=== PATIENT | male | born 1975 | race Caucasian/White ===

== ENCOUNTER 2021-01-30 16:17 | Emergency (ER) | payer MEDICAID ==
[~2021-01-30] VITALS: Ht 180.3 cm; Wt 79.0 kg
--- NOTE | 2021-01-30 16:41 | NUR ---
PT STATES WAS FEELING DIFERENT AND UNSTEADY AND HAVING TROUBLE CONCENTRATING. 3 DAYS AGO PT WAS FEELING UNEASY AND FELT LIKE HE WAS GOING TO BLACK OUT AND FAINT. PT WOKE UP THIS MORNING AND FELT UNSTEADY AGAIN WITH BLURRED VISION. HAS HAD NO APPETITE AND FELT EXHAUSTED. HEADACHES HAVE BEEN GOING ON FOR A WHILE.
[2021-01-30 17:49] LABS: ALANINE AMINOTRANSFERASE 15 U/L (12-78); ALBUMIN 4.3 g/dL (3.4-5.0); ANION GAP 5 mmol/L (5-15); CALCIUM 9.3 mg/dL (8.5-10.1); CHLORIDE 99 mmol/L (98-107); CREATININE 0.99 mg/dL (0.7-1.3)
[2021-01-30 17:53] LABS: BASOPHILS % (AUTO) 1 % (0-1); EOSINOPHILS % (AUTO) 0 % (1-7); LYMPHOCYTES % (AUTO) 13 % (22-44); MEAN CORPUSCULAR HEMOGLOBIN 32.1 pg (27.5-34.5); MEAN CORPUSCULAR HGB CONC 34.3 g/dL (33.2-36.2); MEAN PLATELET VOLUME 9.6 fL (7.4-10.4); MONOCYTES % (AUTO) 6 % (2-9); NEUTROPHILS % (AUTO) 81 % (42-75); PLATELET COUNT 241 x10^3/uL (130-400); RED BLOOD COUNT 4.42 x10^6/uL (4.38-5.82); RED CELL DISTRIBUTION WIDTH 13.7 % (9.4-14.8)
[2021-01-30 17:56] LABS: MD NO
[2021-01-30 17:59] LABS: ALKALINE PHOSPHATASE 58 U/L (45-117); BILIRUBIN,TOTAL 0.5 mg/dL (0.2-1.0); TOTAL PROTEIN 7.3 g/dL (6.4-8.2)
--- NOTE | 2021-01-30 18:14 | NUR ---
PT CURRENTLY RESTING IN BED. VSS
[2021-01-30 20:03] VITALS: BP 121/79
== END 2021-01-30 20:06 | disposition home or self-care (01) ==
LOC: ED 18:25
DX: R51.9 Headache, unspecified (principal); H57.89 Other specified disorders of eye and adnexa; R06.89 Other abnormalities of breathing; R07.9 Chest pain, unspecified; R94.31 Abnormal electrocardiogram [ECG] [EKG]; F17.200 Nicotine dependence, unspecified, uncomplicated
CPT/HCPCS: 36415; 70450; 71045; 80053; 84443; 85025; 93005; 99285